=== PATIENT | female | born 1965 | race Caucasian/White ===

== ENCOUNTER 2018-02-08 08:51 | Day surgery (SDC) | payer OTHER ==
[~2018-02-08] VITALS: Ht 167.6 cm; Wt 58.1 kg
[2018-02-08] MEDS ORDERED: KETOROLAC 30 MG/ML VIAL ONE (10:37)
[2018-02-08] MEDS ORDERED: LIDOCAINE 2% 100 MG/5 ML UJET TP ONE (10:37)
== END 2018-02-08 11:49 | disposition home or self-care (01) ==
LOC: MMU 08:51 → EDSEX 08:51 → MDS 08:51
PROVIDERS: ATTEND Internal Medicine Gastroenterology
DX: Z12.11 Encounter for screening for malignant neoplasm of colon (principal); K63.89 Other specified diseases of intestine; G43.909 Migraine, unspecified, not intractable, without status migrainosus; Z88.0 Allergy status to penicillin; Z90.49 Acquired absence of other specified parts of digestive tract; Z90.710 Acquired absence of both cervix and uterus; Z79.899 Other long term (current) drug therapy; Z98.890 Other specified postprocedural states
CPT/HCPCS: 45378; J1885